=== PATIENT | female | born 1990 | race Caucasian/White ===

== ENCOUNTER 2017-04-15 19:28 | Emergency (ER) | payer OTHER ==
[~2017-04-15] VITALS: Ht 162.6 cm; Wt 61.5 kg
[2017-04-15 19:36] VITALS: Ht 162.6 cm; Wt 61.5 kg
--- NOTE | 2017-04-15 21:50 | ERD ---
ER Documentation Chief Complaint Date/Time DATE: 04/15/17 TIME: 21:48 Chief Complaint Pelvic pain and vaginal bleed X1 day 6 wks HPI 26-year-old female A0 comes in at 6 weeks with lower pelvic pain and vaginal bleeding occurred tonight. She is describes a very slight amount of bleeding with a small area of clot that she passed. She describes cramping pain is diffuse in the lower pelvic region on bilateral sides. She states her last menstrual period was on 03/04/2017. She denies fevers or chills, chest pain , dizziness. ROS All systems reviewed and are negative except as per history of present illness. Allergies Allergies: Coded Allergies: No Known Allergy (Unverified , 04/15/17) PMhx/Soc History of Surgery: No Anesthesia Reaction: No Hx Neurological Disorder: No Hx Respiratory Disorders: No Hx Psychiatric Problems: No Hx Miscellaneous Medical Probl: No Hx Alcohol Use: No Hx Substance Use: No Hx Tobacco Use: No Smoking Status: Never smoker Physical Exam Vitals Vital Signs Date Time Temp Pulse Resp B/P Pulse Ox O2 Delivery O2 Flow Rate FiO2 04/15/17 19:36 98.6 88 20 119/75 100 Physical Exam General: Well-developed, well-nourished. The patient appears in no acute distress. HEENT: Head is normocephalic, atraumatic. No scleral icterus. : Supple. Nontender. Lungs: Clear to auscultation. Normal air movement. Heart: Regular rate and rhythm. S1 and S2 are normal. No murmurs, gallops, or rubs. Abdomen: Soft, nontender, nondistended. Bowel sounds are normoactive. Extremities: No clubbing or cyanosis. Normal pulses. Moving extremities x 4. No weakness. Neurologic: Alert and oriented 3. No focal deficits. Skin: Normal turgor. No rash or lesions. Result Diagram: 04/15/172229 Results 24 hrs Laboratory Tests Test 04/15/17 22:30 04/16/17 00:50 04/16/17 00:54 White Blood Count 7.210^3/ul Red Blood Count 4.5210^6/ul Hemoglobin 12.6g/dl Hematocrit 36.8% Mean Corpuscular Volume 81.4fl Mean Corpuscular Hemoglobin 27.9pg Mean Corpuscular Hemoglobin Concent 34.2g/dl Red Cell Distribution Width 12.9% Platelet Count 67299^3/UL Mean Platelet Volume 10.3fl Neutrophils % 63.1% Lymphocytes % 24.0% Monocytes % 9.2% Eosinophils % 2.6% Basophils % 1.0% Nucleated Red Blood Cells % 0.0/100WBC Neutrophils # (Manual) 4.510^3/ul Lymphocytes # 1.710^3/ul Monocytes # 0.710^3/ul Eosinophils # 0.210^3/ul Basophils # 0.110^3/ul Nucleated Red Blood Cells # 0.010^3/ul Beta HCG, Quantitative 68800.0mIU/ml Urine Color YELLOW Urine Clarity CLEAR Urine pH 6.0 Urine Specific [place] 1.014 Urine Ketones NEGATIVEmg/dL Urine Nitrite NEGATIVEmg/dL Urine Bilirubin NEGATIVEmg/dL Urine Urobilinogen NEGATIVEmg/dL Urine Leukocyte Esterase NEGATIVELeu/ul Urine Microscopic RBC 0/HPF Urine Microscopic WBC 1/HPF Urine Squamous Epithelial Cells FEW/HPF Urine Hemoglobin 2+mg/dL Urine Glucose NEGATIVEmg/dL Urine Total Protein NEGATIVEmg/dl Bedside Urine pH (LAB) 6.5 Bedside Urine Protein (LAB) Negative Bedside Urine Glucose (UA) Negative Bedside Urine Ketones (LAB) Negative Bedside Urine Blood 1+ Bedside Urine Nitrite (LAB) Negative Bedside Urine Leukocyte Esterase (L Negative DIAGNOSTIC IMAGING REPORT Patient: AMARJIT LOZANO : 1990 Age: 26 Sex: F MR #: [id number] DOS: 04/15/17 2141 Ordering MD: ROSA MARY PA-C Location: [facility] Room/Bed: PROCEDURE: Ultrasound of the pelvis. CLINICAL INDICATION: Vaginal bleeding TECHNIQUE: Transabdominal and transvaginal ultrasound of the pelvis was performed. COMPARISON: There are no similar studies submitted for comparison. FINDINGS: LAST MENSTRUAL PERIOD: 03/04/2017 UTERUS and GESTATIONAL SAC Uterus: There is a single intrauterine gestational sac. Mean gestational sac diameter: 1.8 cm; estimated gestational age 6 weeks 3 days. Yolk sac: Present [place]-rump length (CRL): 4.9 mm = 6 weeks 3 days. heart motion: 113 bpm Subchorionic hemorrhage: A small subchorionic hemorrhage is present. OVARIES Right ovary: 2.9 x 2.7 x 2 cm Findings: There is Doppler flow to the right ovary.There is no ovarian lesion or cyst. Left ovary: 4.4 x 2.7 x 2.7 Findings: There is Doppler flow to the left ovary.There is no ovarian lesion or cyst. Cul-de-sac: No free fluid. IMPRESSION: Single live intrauterine with the estimated gestational age of 6 weeks 3 days RPTAT: HIKT .Neptali Hall MD, MD Date Time Electronically viewed and signed by .Neptali Hall MD, on 04/15/2017 23:18 .T/ Procedures/MDM Medical decision makin-year-old female comes in 6 weeks with pelvic pain vaginal bleeding that occurred today, Shows evidence of a single live intrauterine at 6 weeks. She is hemodynamically stable without signs of hemorrhage, anemia, infection. Patient's type and Rh status is positive, no indication for RhoGam. She is to follow-up with her OB in 3-4 days for recheck. Departure Diagnosis: Primary Impression: Vaginal bleeding in patient at less than 20 weeks gestation Condition: ROSA Lambert PA-C Apr 15, 2017 21:50
[2017-04-15 22:49] LABS: WHITE BLOOD COUNT 7.2 10^3/ul (4.8-10.8)
[2017-04-15 22:50] LABS: BASOPHIL # 0.1 10^3/ul (0.0-0.1); EOSINOPHILS # 0.2 10^3/ul (0.0-0.5); EOSINOPHILS % 2.6 % (0.0-7.0); HEMATOCRIT 36.8 % (37.0-47.0); HEMOGLOBIN 12.6 g/dl (12.0-16.0); LYMPHOCYTES # 1.7 10^3/ul (0.8-2.9); MEAN CORPUSCULAR HEMOGLOBIN 27.9 pg (29.0-33.0); MEAN CORPUSCULAR HGB CONC 34.2 g/dl (32.0-37.0); MEAN CORPUSCULAR VOLUME 81.4 fl (82.0-101.0); MEAN PLATELET VOLUME 10.3 fl (7.4-10.4); MONOCYTE # 0.7 10^3/ul (0.3-0.9); MONOCYTES % 9.2 % (0.0-11.0); NEUTROPHILS % 63.1 % (39.0-77.0); PLATELET COUNT 227 10^3/UL (140-415); RED BLOOD COUNT 4.52 10^6/ul (4.20-5.40); RED CELL DISTRIBUTION WIDTH 12.9 % (11.5-14.5)
--- NOTE | 2017-04-15 23:18 | RADRPT ---
PROCEDURE: Ultrasound of the pelvis. CLINICAL INDICATION: Vaginal bleeding TECHNIQUE: Transabdominal and transvaginal ultrasound of the pelvis was performed. COMPARISON: There are no similar studies submitted for comparison. FINDINGS: LAST MENSTRUAL PERIOD: 03/04/2017 UTERUS and GESTATIONAL SAC Uterus: There is a single intrauterine gestational sac. Mean gestational sac diameter: 1.8 cm; estimated gestational age 6 weeks 3 days. Yolk sac: Present [place]-rump length (CRL): 4.9 mm = 6 weeks 3 days. heart motion: 113 bpm Subchorionic hemorrhage: A small subchorionic hemorrhage is present. OVARIES Right ovary: 2.9 x 2.7 x 2 cm Findings: There is Doppler flow to the right ovary.There is no ovarian lesion or cyst. Left ovary: 4.4 x 2.7 x 2.7 Findings: There is Doppler flow to the left ovary.There is no ovarian lesion or cyst. Cul-de-sac: No free fluid. IMPRESSION: Single live intrauterine with the estimated gestational age of 6 weeks 3 days RPTAT: HIKT .Neptali Hall MD, Date Time Electronically viewed and signed by .Neptali Hall MD, on 04/15/2017 23:18 .T/
[2017-04-16 00:48] LABS: URINE BLOOD (Dip) POC 1+ (NEGATIVE)
[2017-04-16 01:27] LABS: ADD UMIC YES; UR ASCORBIC ACID NEGATIVE (NEGATIVE); UR BILIRUBIN (Dip) NEGATIVE (NEGATIVE); UR BLOOD (Dip) 2+ mg/dL (NEGATIVE); UR CLARITY CLEAR (CLEAR); UR COLOR YELLOW (YELLOW); UR GLUCOSE (Dip) NEGATIVE (NEGATIVE); UR KETONES (Dip) NEGATIVE (NEGATIVE); UR LEUKOCYTE ESTERASE (Dip) NEGATIVE Leu/ul (NEGATIVE); UR NITRITE (Dip) NEGATIVE (NEGATIVE); UR RBC 0 /HPF (0-5); UR SPECIFIC GRAVITY (Dip) 1.014 (1.003-1.030); UR SQUAMOUS EPITHELIAL CELL FEW /HPF (FEW); UR TOTAL PROTEIN (Dip) NEGATIVE (NEGATIVE); UR UROBILINOGEN (Dip) NEGATIVE (NEGATIVE)
== END 2017-04-16 01:12 | disposition home or self-care (01) ==
LOC: FTE 19:28
DX: O20.9 Hemorrhage in early pregnancy, unspecified (principal); R10.2 Pelvic and perineal pain; Z3A.01 Less than 8 weeks gestation of pregnancy
CPT/HCPCS: 36415; 76801; 76817; 81001; 81003; 84702; 85025; 86900; 86901